=== PATIENT | male | born 1940 | race Caucasian/White ===

== ENCOUNTER → 2018-04-28 | Outpatient (CLI) | payer OTHER | END | disposition home or self-care (01) | LOC: CARD 13:10 | PROVIDERS: ATTEND Orthopaedic Surgery | DX: C34.90 Malignant neoplasm of unspecified part of unspecified bronchus or lung (principal); C64.9 Malignant neoplasm of unspecified kidney, except renal pelvis | CPT/HCPCS: 94060; 94726; 94729 ==